=== PATIENT | male | born 1995 | race African-American/Black ===

== ENCOUNTER 2017-03-19 18:57 | Emergency (ER) | payer MEDICAID ==
[~2017-03-19] VITALS: Ht 188 cm; Wt 106.8 kg
[2017-03-19 18:58] VITALS: BP 156/89; PULSE 84; RESP 16; TEMP 98.4; O2SAT 99
[2017-03-19] MEDS ORDERED: PROPARACAINE HCL 0.5% OPHT SOLN 15 ML BTL EACH EYE ONE (19:30)
--- NOTE | 2017-03-19 19:30 | PD ---
HPI . right eye problem Chief Complaint: Eye Problems/Injury Time Seen by Provider: 19:28 Travel History International Travel<30 days: No Contact w/Intl Traveler<30days: No Traveled to known affect area: No History of Present Illness HPI 21-year-old male with no significant past medical history here with complaints of right eye pain and sensitivity. Patient tells me that he woke up this morning and felt that there might of been something in his eye. He has since tried flushing it out several times without success. He tells me that he feels like something may still be in there, however he doesn't think anything is there. He admits to pain and sensitivity. He does not believe his vision is affected. + contact lens wearer PFSH Past Medical History Medical History: Denies Significant Hx Tetanus Vaccination: > 5 Years Past Surgical History Surgical History: No Previous Surgery Social History Alcohol Use: No Tobacco Use: No Substance Use: No Allergies-Medications (Allergen,Severity, Reaction): Coded Allergies: No Known Allergies (Unverified , 03/19/17) Reported Meds & Prescriptions Reported Meds & Active Scripts Active No Active Prescriptions or Reported Medications Review of Systems General / Constitutional: No: Fever Eyes: Positive: Redness, Foreign Body Sensation, Pain, Tearing, No: Visual changes HENT: No: Headaches Cardiovascular: No: Chest Pain or Discomfort Respiratory: No: Shortness of Breath Gastrointestinal: No: Abdominal Pain Genitourinary: No: Dysuria Musculoskeletal: No: Pain Skin: No Rash Neurologic: No: Weakness Psychiatric: No: Depression Endocrine: No: Polydipsia Hematologic/Lymphatic: No: Easy Bruising Physical Exam Narrative GENERAL: AAO x 3, no acute distress, Well-nourished, well-developed patient. SKIN: Warm and dry. No visible rashes or bruising. HEAD: Normocephalic and atraumatic. EYES: No scleral icterus. right eye erythematous, injection present, + corneal abrasion to the right eye ENT: No nasal drainage noted. Mucous membranes pink. Airway patent. NECK: Supple, trachea midline. No JVD. CARDIOVASCULAR: Regular rate and rhythm without murmurs, gallops, or rubs. RESPIRATORY: Breath sounds equal bilaterally. No accessory muscle use. No rhonchi or rales. GASTROINTESTINAL: visual inspection normal EXTREMITIES: No cyanosis or edema. BACK: Nontender without obvious deformity. No CVA tenderness. NEURO: CN II-12 intact PSYCH: AAO x 3, normal affect. Data Data Last Documented VS Vital Signs Date Time Temp Pulse Resp B/P (MAP) Pulse Ox O2 Delivery O2 Flow Rate FiO2 03/19/17 19:38 20 03/19/17 18:58 98.4 84 156/89 (111) 99 Orders Orders Proparacaine 0.5% Opth Soln (Alcaine 0.5 (03/19/17 19:30) MDM Medical Decision Making Medical Screen Exam Complete: Yes Emergency Medical Condition: Yes Medical Record Reviewed: Yes Differential Diagnosis foreign body eye, bacterial conjunctivitis, less likely HSV infection Narrative Course 21 yr old male here with c/o right eye possible foreign body. Eye staining procedure: patient gave verbal consent + small corneal abrasion to the right eye Will discharge home with antibiotic eye drops. Case discussed with my attending Dr. Multani. Patient verbalized understanding of instructions, questions were answered, and thanked me for their care. I advised them if their condition worsens, please return to the nearest emergency room for further care. Procedures Procedure Narrative Fluorescein eye staining procedure: right eye proparacaine drops instilled into the right eye Local anesthesia was accomplished. the eye was inspected for any type of obvious foreign body; none visualized fluorescein stain was applied to look for corneal abrasion: + corneal abrasion to the right eye Diagnosis Primary Impression: Corneal abrasion due to contact lens Qualified Codes: H18.821 - Corneal disorder due to contact lens, right eye Referrals: Manager Medical Affairs Patient Instructions: General Instructions Additional Instructions: If you develop a sudden loss of vision or eye pain. Go to nearest emergency department. 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 Scripts Ofloxacin Opth Drops (Ocuflox Opth Drops) 0.3 % Drops 1 DROP RIGHT EYE QID for Infection for 5 Days, #1 BOTTLE 0 Refills Prov: Reema Multani MD 03/19/17 Disposition: 01 DISCHARGE HOME Condition: Stable Judith Keating Mar 19, 2017 19:30
[2017-03-19] MEDS ORDERED: OCUF0.3D RIGHT EYE (19:57)
== END 2017-03-19 20:41 | disposition home or self-care (01) ==
LOC: NEPD 18:57
DX: H18.821 Corneal disorder due to contact lens, right eye (principal)
CPT/HCPCS: 99283